=== PATIENT | male | born 1970 | race Caucasian/White ===

== ENCOUNTER → 2018-02-27 11:41 | Outpatient (CLI) | payer OTHER, SELFPAY ==
--- NOTE | 2018-02-27 11:41 | DT_ITS ---
This patient was seen during an EMR downtime February 20, 2018 - February 27, 2018. This patient may have a combination of paper and electronic documentation or all paper documentation. All documentation is viewable within the e-chart portion of [facility] for each patient visit.
[2018-02-27 14:00] LABS: Absolute Lymphocyte Count 0.82 X10^3/ul (0.83-4.51); Absolute Neutrophil Count 3.8 X10^3/uL (2.0-7.7); Basophil# 0.02 X10^3/uL; Basophil% 0.4 % (0-1); Eosinophil# 0.04 X10^3/uL; Eosinophils% 0.7 % (0-5); Hematocrit 44.8 % (40-54); Hemoglobin 15.7 g/dl (13.0-16.5); Lymphocyte # 0.82 X10^3/ul (4.0); Lymphocyte % 15.3 % (19-41); Mean Corpuscular Hgb 31.6 pg (27.0-32.0); Mean Corpuscular Volume 90.1 fL (80-94); Mean Platelet Vol. 12.1 fl (6.2-12.0); Monocyte# 0.68 X10^3/uL; Monocyte% 12.7 % (0-10); Neutrophil # 3.78 X10^3/uL (2.7-7.7); Neutrophil % 70.5 % (47-70); Platelet Count 164 K/mm3 (150-450); RBC Distribution Width CV 13.3 % (11.6-14.6); RBC Distribution Width SD 43.3 fl (35.1-43.9); Red Blood Count 4.97 M/mm3 (4.6-6.2); White Blood Count 5.4 K/mm3 (4.4-11.0)
[2018-02-27 14:01] LABS: ALB/GLOB Ratio 1.3 RATIO (0.9-2.4); AST(SGOT) 20 U/L (15-37); Alanine Aminotransfer ALT/SGPT 40 U/L (16-61); Albumin, Serum 4.1 g/dL (3.2-5.0); Alkaline Phosphatase 89 U/L (45-117); Anion Gap 5 (5-15); BUN 11 mg/dL (7-18); BUN/Creat Ratio 13.3 RATIO (10-20); Chloride 109 mmol/L (98-107); Creatinine, Serum 0.83 mg/dL (0.70-1.30); EST Glomerular Filtration Rate 106 mL/min (>60); Est Glom Filt Rate - Afr Amer 129 mL/min (>60); Globulin 3.2 g/dL (2.2-4.2); Glucose 106 mg/dL (74-106); Potassium 4.4 mmol/L (3.5-5.1); Protein, Total 7.3 g/dL (6.4-8.2); Sodium Level 139 mmol/L (136-145)
[2018-02-27 14:05] LABS: POSITIVE COUNT NO; POSITIVE DIFFERENTIAL NO; POSITIVE MORPHOLOGY NO
== END ==
PROVIDERS: Family Provider Family Medicine; PCP Family Medicine; Visit Provider Family Medicine
DX: R10.9 Unspecified abdominal pain (principal)
CPT/HCPCS: 36415; 80053; 85025

== ENCOUNTER → 2018-02-27 12:12 | Outpatient (CLI) | payer OTHER, SELFPAY ==
--- NOTE | 2018-02-27 12:12 | DT_ITS ---
This patient was seen during an EMR downtime February 20, 2018 - February 27, 2018. This patient may have a combination of paper and electronic documentation or all paper documentation. All documentation is viewable within the e-chart portion of [facility] for each patient visit.
--- NOTE | 2018-02-27 12:16 | CT_ITS ---
STUDY: CT ABDOMEN AND PELVIS WITH CONTRAST REASON FOR EXAM: Male, 47 years old. Right lower quadrant pain, nausea, vomiting. History of kidney stones. RADIATION DOSAGE (If Supplied By Facility): CTDIvol = ( 18.74 ) mGy, DLP = ( 1390.01 ) mGycm TECHNIQUE: Transaxial images were obtained from the dome of the diaphragm to the symphysis pubis with oral contrast. 100CC ml of Isovue 300 contrast was administered. Sagittal and coronal images were reconstructed. Individualized dose optimization techniques were used for this CT. COMPARISON: CT abdomen and pelvis September 29, 2015. FINDINGS: The visualized lung bases are unremarkable. The visualized portions of the heart are within normal limits. 1 cm incompletely defined rounded low-density in the upper aspect of segment 4 of the liver (series 2 image 20, series 6 on image 72) is difficult to further characterize. The patent portal vein diameter is 17.5 mm. Normal gallbladder and extrahepatic biliary system. Normal spleen. Normal pancreas. Normal bilateral adrenal glands. Normal right kidney. 1-2 mm nonobstructing calyceal stone again seen at the lower pole of the left kidney. The left ureteral stent has been removed. No hydronephrosis. Normal visualized stomach. Normal small intestine. Normal colon. The appendix is visualized and appears normal. There is mild atherosclerotic calcification of the lower abdominal aorta, without a demonstrated aneurysm. Normal inferior vena cava. Normal retroperitoneum. Normal urinary bladder. Normal visualized prostate gland. There is a small umbilical hernia containing fat. There is asymmetric fatty density extending from the inguinal canal into the spermatic cord, suggesting a left-sided inguinal hernia. There are stable multilevel degenerative changes of the visualized spine. There is a stable moderately defined 2.2 x 2.2 x 2.4 cm zone of lucency and mildly coarsened trabeculae in the posterior mid body of the T12 vertebra, consistent with hemangioma. There are well corticated invaginations of the T11-L1 vertebral endplates consistent with benign Schmorl's nodes. Mild anterior wedging of the T11 vertebra is unchanged. Degenerative changes also seen in the bilateral sacroiliac joints and left hip. CT/Abdomen/Pelvis WITH Contrast IMPRESSION: 1. Stable 1-2 mm nonobstructing stone in the lower pole of the left kidney. Left ureteral stent has been removed since previous exam. No hydronephrosis. 2. The bowel is unremarkable without sign of obstruction. The appendix is normal. 3. 1 cm rounded low density in the upper aspect of segment 4 of the liver is difficult to fully characterize, possibly a complex cyst or hemangioma. This is a region difficult to scan with ultrasound, and one might consider 3 month follow-up to confirm stability. 4. Stable small, fat-containing umbilical hernia and fat-containing left inguinal hernia. 5. Stable degenerative changes of the spine and pelvis, as well as probable 2.4 cm hemangioma in the T12 vertebra. There is stable anterior wedging of the T11 vertebra. Electronically Signed: Vaughn Quinn MD at 17:12 EDT , Service support ,
== END ==
PROVIDERS: Family Provider Family Medicine; PCP Family Medicine; Visit Provider Family Medicine
DX: R10.9 Unspecified abdominal pain (principal)
CPT/HCPCS: 74177; Q9967

== ENCOUNTER 2021-04-24 23:56 | Emergency (ER) | payer OTHER, SELFPAY ==
[2021-04-24 23:58] VITALS: BP 170/154; PULSE 134; RESP 16; TEMP 36; O2SAT 96; BMI 38.3
--- NOTE | 2021-04-25 00:13 | CT_ITS ---
STUDY: CT ABDOMEN AND PELVIS WITHOUT CONTRAST REASON FOR EXAM: Male, 50 years old. Pain RADIATION DOSAGE (If Supplied By Facility): CTDIvol = ( 21.44 ) mGy, DLP = ( 1248.02 ) mGycm TECHNIQUE: Transaxial images were obtained from the dome of the diaphragm to the symphysis pubis without oral contrast, and without intravenous contrast. Sagittal and coronal images were reconstructed. Individualized dose optimization techniques were used for this CT. COMPARISON: CT abdomen and pelvis dated 02/27/2018 FINDINGS: The visualized lung bases are unremarkable. The visualized portions of the heart are within normal limits. There is decreased attenuation of the liver consistent with steatosis. Normal gallbladder and extrahepatic biliary system. Normal spleen. Normal pancreas. Normal bilateral adrenal glands. Normal right kidney. Normal left kidney. Nonobstructing left lower pole nephrolith measuring 3 mm. Stable from prior. Normal visualized stomach. Normal small intestine. Normal colon. The appendix is visualized and appears normal. Normal abdominal aorta. Normal inferior vena cava. Normal retroperitoneum. Normal urinary bladder. Normal visualized prostate gland. Normal abdominal wall. Normal osseous structures. CT/Abdomen/Pelvis without Cont IMPRESSION: Normal unenhanced CT of the abdomen and pelvis. Electronically Signed: Jimmy Moore DO at 1:47 EDT Tel , Service support ,
--- NOTE | 2021-04-25 00:14 | EDS_ITS ---
HPI History of Present Illness Chief Complaint: Flank Pain Detail of Chief Complaint: Right flank pain that started around 9 PM Informant: patient Narrative Narrative: Patient presents with right flank pain that started around 9 PM tonight. Patient has history of kidney stones. Initially the pain was more severe but now only rates it about a 4 out of 10. Patient states the pain comes in waves. Patient's try to urinate but only getting small amounts of urine at a time. Patient denies any fevers. He did vomit x2 tonight. Patient also admits to 4-5 beers tonight. Prior similar symptoms: [facility] Medical History (Updated 04/25/21 @ 01:[address] Pauline Parra, DO) History of broken nose Kidney stones Home Medications [id number] 2 tab PO Q4H PRN PRN #20 tablet 08/11/16 [Rx Last Taken Unknown] ondansetron 4 mg PO Q8H PRN PRN #10 tab 08/11/16 [Rx Last Taken Unknown] potassium citrate [Urocit-K] 0 meq PO BID 08/11/16 [History Last Taken Unknown] hydrocodone-acetaminophen 1 tab PO Q4H PRN PRN 2 Days #10 tablet 04/25/21 [Rx Last Taken Unknown] Allergy/AdvReac Type Severity Reaction Status Date / Time No Known Allergies Allergy Verified 04/25/21 00:00 Social History Smoking Status: Current every day smoker tobacco type: cigarettes ROS ROS ED Constitutional Constitutional ED: Reports systems reviewed and no addt'l complaints, except as documented; Denies body ache(s), change in weight or chills Eyes Eyes: Denies acute decrease in peripheral vision, change in vision, double vision or loss of vision ENT ENT ED: Reports none; Denies ear pain, lip swelling, loss taste/smell, neck pain, otalgia or sore throat Cardiovascular Cardiovascular: Reports none; Denies abdominal pain, chest pain with activity, leg edema, lightheadedness, palpitations, rapid heart rate or syncope Respiratory/Chest Respiratory/Chest: Reports none; Denies change in mental status, dry cough, dyspnea, hemoptysis, shortness of breath at rest or shortness of breath with exertion Gastrointestinal Gastrointestinal: Reports none, nausea and vomiting; Denies abdominal pain, change in stool character, diarrhea, hematemesis, hematochezia, melena or rectal bleeding Genitourinary Genitourinary ED: Reports none; Denies abdominal discomfort, anuria, dysuria, genital pain or polyuria Musculoskeletal Musculoskeletal: Reports none and back pain; Denies arthralgias, difficulty walking, extremity pain, muscle weakness or myalgias Integumentary Reports none; Denies abscess or rash Neurologic Neurologic: Reports none; Denies abnormal gait, confusion, focal weakness, frequent falls, headache(s), loss of vision, numbness, paresthesias, radicular pain, vertigo or weakness Psychiatric Psychiatric: Reports systems reviewed and no addt'l complaints, except as documented and none; Denies behavioral changes, confusion, difficulty concentrating, hallucinations, suicidal ideation, tactile hallucinations or visual hallucinations Endocrine Endocrinology: Denies none, cold intolerance, excessive sweating, fatigue or heat intolerance Hematologic/Lymphatic Hematologic/Lymphatic: Reports none; Denies anemia, easy bleeding or easy bruising Allergic/Immunologic Allergic/Immunologic ED: Denies as per HPI, none, lip swelling, mouth swelling, throat swelling, tongue swelling or hives EXAM Physical Exam Const Vital Signs: 04/24/21 23:58 04/25/21 01:32 Temperature 96.8 F L Temperature Source Temporal Pulse Rate 134 H Respiratory Rate 16 18 Blood Pressure 170/154 H Blood Pressure Mean 159 Pulse Ox 96 Oxygen Delivery Method Room Air Positive well nourished and well developed General Appearance ED: well developed and NAD HEENT Reports TM's clear and moist mucous membranes normocephalic and atraumatic; Negative for trauma or tenderness Tympanic Membrane ED: Yes TM's clear Eyes PERRL and EOMs intact bilaterally General Eye ED: Negative for pale conjunctiva or scleral icterus Neck no lymphadenopathy, supple and no JVD General: Negative for tenderness Chest Wall inspection of chest normal and palpation of chest normal Chest: Negative for tenderness Resp normal respiratory effort and clear to auscultation bilaterally Effort and Inspection: Negative for respiratory distress or pain with movement Auscultation: Negative for rhonchi, wheezes or diminished lung sounds Cardio regular rate, regular rhythm, S1 normal heart sound, S2 normal heart sound and no murmurs Peripheral Pulses: pulses 2+ throughout GI normal to inspection, nondistended, normoactive bowel sounds, soft to palpation, non-distended and no masses Palpation: soft and tender RLQ Back/Spine no thoracic nor lumbar tenderness General Back: CVA tenderness right Extremity normal to inspection General Extremety ED: Negative for edema General Extremity: Negative for edema Neuro oriented x3, CN's II-XII intact bilaterally, no sensory deficits noted and gait normal Sensorium / Orientation: awake, alert, oriented to person, oriented to place and oriented to time Motor Exam: strength 5/5 throughout and strength abnormal Psych mental status grossly normal Skin no rashes or lesions noted and no wounds MDM MDM MDM Narrative Medical decision making narrative: Etiology of patient's flank pain unclear. He received Toradol in the emergency department and his pain currently is minor and rates it about a 3 out of 10. Patient looks well. He will be discharged home and advised follow-up with his primary care physician 3 to 5 days. He is advised to return if worsening pain, fever, vomiting, or condition should worsen anyway. Lab Data Attestation: I reviewed the patient's lab results. Labs: Laboratory Results - last 24 hr 04/25/21 04/25/21 04/25/21 00:27 00:30 00:30 WBC 7.8 RBC 5.14 Hgb 16.8 H Hct 48.6 MCV 94.6 H MCH 32.7 H MCHC 34.6 RDW Std Deviation 43.8 RDW Coeff of Carmella 12.4 Plt Count 203 MPV 10.8 Immature Gran % (Auto) 0.600 Neut % (Auto) 62.4 Lymph % (Auto) 22.8 [place] % (Auto) 11.9 H Eos % (Auto) 1.8 Baso % (Auto) 0.5 Absolute Neuts (auto) 4.8 Absolute Lymphs (auto) 1.77 Nucleated RBC % 0 Sodium 137 Potassium 4.0 Chloride 104 Carbon Dioxide 24.0 Anion Gap 9 BUN 10 Creatinine 0.72 Estim Creat Clear Calc 144.29 Est GFR (MDRD) Af Amer 149 Est GFR (MDRD) Non-Af 123 BUN/Creatinine Ratio 13.9 Glucose 108 H Calcium 9.2 Total Bilirubin 0.70 AST 42 H ALT 90 H Alkaline Phosphatase 86 Total Protein 7.9 Albumin 4.3 Globulin 3.6 Albumin/Globulin Ratio 1.2 Urine Color Yellow Urine Clarity Clear Urine pH 6.5 Ur Specific [place] 1.010 Urine Protein Negative Urine Glucose (UA) Normal Urine Ketones Negative Urine Occult Blood Negative Urine Nitrite Negative Urine Bilirubin Negative Urine Urobilinogen Normal Ur Leukocyte Esterase Negative Urine RBC 0 SEEN Urine WBC 0 SEEN Ur Squamous Epith Cells 0 SEEN Urine Bacteria 0 SEEN Urine Mucus 0 SEEN Radiography Diagnostic Testing: Radiology Impression Abdomen/Pelvis CT 04/25/21 00:13 IMPRESSION: Normal unenhanced CT of the abdomen and pelvis. Electronically Signed: Jimmy Moore DO at 1:47 EDT Tel , Service support , Discharge Plan Triage Chief Complaint: Flank Pain ED Provider: Pauline Parra Dx/Rx/DC Orders Clinical Impression: Acute flank pain Instructions: ED Flank Pain, Uncertain Cause Prescriptions: New hydrocodone-acetaminophen [hydrocodone-acetaminophen] 1 TABLET tablet 1 tab PO Q4H PRN PRN (Reason: Pain) 2 Days Qty: 10 RF: 0 No Action potassium citrate [Urocit-K 15] 15 MEQ tablet extended release 0 meq PO BID RF: 0 [id number] 1 TABLET tablet 2 tab PO Q4H PRN PRN (Reason: Headache) Qty: 20 RF: 0 ondansetron 4 MG tablet 4 mg PO Q8H PRN PRN (Reason: Nausea) Qty: 10 RF: 0 Primary Care Provider: Arjun Maya Referrals: Arjun Maya MD [Primary Care Provider] - 3-5 Days Disposition Disposition: Home, Self Care
[2021-04-25 00:32] LABS: Bacteria 0 SEEN /hpf (None Seen); Mucous, Urine 0 SEEN /hpf (<or=2+); Red Blood Cells-Urine 0 SEEN /hpf (0-5); Squamous Epithelial Cells - UA 0 SEEN /hpf (0-5); White Blood Cells 0 SEEN /hpf (0-5)
[2021-04-25] MEDS: Ketorolac 30 MG/ML Syringe IV (00:35)
[2021-04-25] MEDS: Ondansetron 4 MG/2 ML Vial IV (00:35)
[2021-04-25] MEDS: 0.9% Normal Saline 1,000 ML 125 ML IV (00:35)
[2021-04-25 00:56] LABS: Absolute Lymphocyte Count 1.77 X10^3/uL (0.83-4.51); Absolute Neutrophil Count 4.8 X10^3/uL (2.0-7.7); Basophil# 0.04 X10^3/uL; Basophil% 0.5 % (0-1); Eosinophil# 0.14 X10^3/uL; Eosinophils% 1.8 % (0-5); Hematocrit 48.6 % (40-54); Hemoglobin 16.8 g/dL (13.0-16.5); Lymphocyte # 1.77 X10^3/ul (0.83-4.51); Lymphocyte % 22.8 % (19-41); Mean Corp Hgb Conc 34.6 g/dL (32-36); Mean Corpuscular Hgb 32.7 pg (27.0-32.0); Mean Corpuscular Volume 94.6 fL (80-94); Mean Platelet Vol. 10.8 fl (6.2-12.0); Monocyte# 0.92 X10^3/uL; Monocyte% 11.9 % (0-10); NRBC Flagged by Analyzer 0 % (0-5); Neutrophil # 4.84 X10^3/uL (2.7-7.7); Neutrophil % 62.4 % (47-70); Platelet Count 203 K/mm3 (150-450); RBC Distribution Width CV 12.4 % (11.6-14.6); RBC Distribution Width SD 43.8 fl (35.1-43.9); Red Blood Count 5.14 M/mm3 (4.6-6.2); White Blood Count 7.8 K/mm3 (4.4-11.0)
[2021-04-25 01:03] LABS: ALB/GLOB Ratio 1.2 RATIO (0.9-2.4); AST(SGOT) 42 U/L (15-37); Alanine Aminotransfer ALT/SGPT 90 U/L (16-61); Albumin, Serum 4.3 g/dL (3.2-5.0); Alkaline Phosphatase 86 U/L (45-117); Anion Gap 9 (5-15); BUN 10 mg/dL (7-18); BUN/Creat Ratio 13.9 RATIO (10-20); Calcium,Total 9.2 mg/dL (8.5-10.1); Chloride 104 mmol/L (98-107); Creatinine, Serum 0.72 mg/dL (0.70-1.30); EST Glomerular Filtration Rate 123 mL/min (>60); Est Glom Filt Rate - Afr Amer 149 mL/min (>60); Estimated Creatinine Clearance 144.29 ml/min; Globulin 3.6 g/dL (2.2-4.2); Glucose 108 mg/dL (74-106); Protein, Total 7.9 g/dL (6.4-8.2); Sodium Level 137 mmol/L (136-145)
[2021-04-25 01:16] LABS: Color, Urine Yellow (Yellow); Glucose, Dipstick Normal (Normal); Ketone-Dipstick Negative (Negative); Leukocyte Esterase-Dipstick Negative /ul (Negative); Nitrite-Dipstick Negative (Negative); Occult Blood-Urine Negative /ul (Negative); Protein-Dipstick Negative (Negative); Urine Bilirubin Dipstick Negative (Negative); Urine Clarity Clear (Clear); Urine Urobilinogen Normal (Normal); Urine pH 6.5 (5.0 - 8.0)
[2021-04-25 01:32] VITALS: RESP 18
[2021-04-25 02:01] VITALS: BP 119/82
== END 2021-04-25 02:03 | disposition home or self-care (01) ==
PROVIDERS: Emergency Provider Emergency Medicine; PCP Family Medicine
DX: R10.9 Unspecified abdominal pain (principal); F17.210 Nicotine dependence, cigarettes, uncomplicated; Z87.442 Personal history of urinary calculi
CPT/HCPCS: 74176; 80053; 81001; 85025; 96374; 96375; 99283; J7030; A4216; J2405

== ENCOUNTER → 2021-06-04 14:45 | Outpatient (CLI) | payer OTHER, SELFPAY | LOC: LABSPEC 14:46 | PROVIDERS: PCP Family Medicine; Referring Provider Family Medicine; Visit Provider Family Medicine | DX: Z20.822 Contact with and (suspected) exposure to COVID-19 (principal) | CPT/HCPCS: 87635; U0005; U0003 ==

== ENCOUNTER 2022-05-25 07:34 | Emergency (ER) | payer OTHER, SELFPAY ==
[2022-05-25 07:35] VITALS: BP 167/109; PULSE 70; RESP 16; TEMP 36.2; O2SAT 96; BMI 39.0
--- NOTE | 2022-05-25 07:52 | ED.VIS.BACK ---
HPI History of Present Illness Chief Complaint: Flank Pain Informant: patient Onset/Context/Timing Onset: Today (1 hr) Context: Sudden Onset (after slipping in shower -- see below) Timing: Continuous (not colicky) Quality: Aching Location: Lumbar, Buttock and Right Leg Current Severity: Moderate Maximum Severity: Severe Worsened by: improves with Movement, Ambulation and Bending Relieved by: Remaining Still Associated Symptoms Associated Symptoms: Radiation to Right Leg; Negative for Numbness, Tingling, Radiation to Left Leg, Fever, Abdominal Pain, Dysuria, Unable to Ambulate, Unable to Transfer, Urinary Retention, Urinary Incontinence, Constipation or Fecal Incontinence Narrative Narrative: Patient states she was taking a shower before work this morning and he slipped, catching himself without falling, and he noticed relatively sudden onset shortly after that pain in his right low back, radiating into his buttock and proximal right thigh but not down to or beyond the knee, it has been there ever since. He has a history of kidney stones, and he states oftentimes when the pain starts from a kidney stone he feels it drop and he had that sensation this morning however subsequently there has been no colicky nature like he usually has, or pain wrapping around his flank to his abdomen like he usually has. No urinary symptoms. He states it really hurts to move, with regards to his back, which is unusual for when he has stones. [facility] Medical History History of broken nose Kidney stones Home Medications [id number]-gbstfaukcqrkz-ccqrczxx 50 mg-325 mg-40 mg tablet 2 tab PO Q4H PRN PRN Headache ##20 08/11/16 [Rx Last Taken Unknown] ondansetron 4 mg disintegrating tablet 4 mg PO Q8H PRN PRN Nausea #10 tabs 08/11/16 [Rx Last Taken Unknown] potassium citrate 15 mEq (1,620 mg) tablet,extended release (Urocit-K 15) 0 meq PO BID 08/11/16 [History Last Taken Unknown] hydrocodone-acetaminophen 5-325mg 5mg-325mg 1 tab PO Q4H PRN PRN Pain 2 days #10 TABLETS 04/25/21 [Rx Last Taken Unknown] orphenadrine citrate 100 mg tablet,extended release 100 mg PO Q12H PRN muscle spasm #10 tabs 05/25/22 [Rx Last Taken Unknown] tramadol 50 mg tablet 50 mg PO Q6H PRN pain 2 days #10 tabs 05/25/22 [Rx Last Taken Unknown] Allergy/AdvReac Type Severity Reaction Status Date / Time No Known Allergies Allergy Verified 05/25/22 07:38 Social History Smoking Status: Current every day smoker tobacco type: cigarettes ROS ROS ED Constitutional Constitutional ED: Denies chills or fever(s) Gastrointestinal Gastrointestinal: Denies abdominal pain, constipation, fecal incontinence, nausea or vomiting Genitourinary Genitourinary ED: Reports other Details: no urinary retention ; Denies abdominal discomfort, flank pain or urinary incontinence Musculoskeletal Musculoskeletal: Reports as per HPI and back pain; Denies neck pain Integumentary Denies rash or wounds Neurologic Neurologic: Denies headache(s), paresthesias or weakness EXAM Physical Exam Const Vital Signs: 05/25/22 07:35 05/25/22 07:53 Temperature 97.2 F L Temperature Source Temporal Pulse Rate 70 Respiratory Rate 16 Respiratory Effort Normal Non-Labored Respiratory Pattern Normal Blood Pressure 167/109 H Blood Pressure Mean 128 Pulse Ox 96 Oxygen Delivery Method Room Air Positive well nourished, well developed and obese General Appearance ED: well developed and NAD Nutritional Appearance: obese HEENT Negative for trauma or tenderness Eyes PERRL and EOMs intact bilaterally Neck full ROM and supple GI normal to inspection, nondistended, normoactive bowel sounds, soft to palpation and non-tender Back/Spine normal to inspection Back/Spine Narrative: Straight leg raises while sitting are negative bilaterally, only increasing back pain Lumbar Spine / Lower Back: ROM limited, paraspinal muscle tenderness right (Near pelvic brim and into buttock/SI joint. No deformities or bony tenderness.) and straight leg raise negative bilaterally; Negative for lumbar spinal tenderness Extremity normal to inspection, full ROM and no pedal edema Neuro oriented x3 and no sensory deficits noted Sensorium / Orientation: alert Motor Exam: strength 5/5 throughout and clonus absent Deep Tendon Reflexes: Rt Patellar (L4): 2+, Lt Patellar (L4): 2+, Rt Ankle (S1): 2+ and Lt Ankle (S1): 2+ Deep Tendon Reflexes Back: Rt Patellar (L4): 2+, Lt Patellar (L4): 2+, Rt Ankle (S1): 2+ and Lt Ankle (S1): 2+ Plantar Reflex: Downgoing: bilateral Psych mental status grossly normal and thought process normal Skin no rashes or lesions noted and no wounds MDM MDM MDM Narrative Medical decision making narrative: ForWe did a urinalysis that was normal with no microscopic hematuria, and the patient was given an injection of Norflex, he took meloxicam 15 mg prior to coming here. On reexamination he is feeling much better. It is worse with movement still but definitely improved. I think this is all consistent with a lumbosacral myofascial strain, and I do not think he needs repeat imaging, he is in agreement. He will be given a day off of work, Norflex as well as some tramadol to use as needed at home, discussed supportive care for this likely self-limiting problem. Lab Data Attestation: I reviewed the patient's lab results. Labs: Laboratory Results - last 24 hr 05/25/22 07:55 Urine Color Yellow Urine Clarity Clear Urine pH 6.0 Ur Specific [place] 1.015 Urine Protein Negative Urine Glucose (UA) Normal Urine Ketones Negative Urine Occult Blood Negative Urine Nitrite Negative Urine Bilirubin Negative Urine Urobilinogen Normal Ur Leukocyte Esterase Negative Urine RBC 0 SEEN Urine WBC 0 SEEN Ur Squamous Epith Cells 0 SEEN Urine Bacteria 0 SEEN Urine Mucus 0 SEEN Discharge Plan Triage Chief Complaint: Flank Pain ED Provider: Td Pressley Dx/Rx/DC Orders Clinical Impression: Acute lumbosacral myofascial strain Instructions: ED Back Sprain/Strain Prescriptions: New tramadol 50 mg tablet 50 mg PO Q6H PRN (Reason: pain) 2 Days Qty: 10 0RF orphenadrine citrate 100 mg tablet extended release 100 mg PO Q12H PRN (Reason: muscle spasm) Qty: 10 0RF No Action potassium citrate [Urocit-K 15] 15 MEQ tablet extended release 0 meq PO BID [id number]-[id number] 1 TABLET tablet 2 tab PO Q4H PRN PRN (Reason: Headache) Qty: 20 0RF ondansetron 4 MG tablet 4 mg PO Q8H PRN PRN (Reason: Nausea) Qty: 10 0RF hydrocodone-acetaminophen [hydrocodone-acetaminophen] 1 TABLET tablet 1 tab PO Q4H PRN PRN (Reason: Pain) 2 Days Qty: 10 0RF Stand Alone Forms: ED Work / School Excuse Primary Care Provider: Arjun Maya Referrals: Arjun Maya MD [Primary Care Provider] - 1 Week if not improving Disposition Disposition: Home, Self Care
[2022-05-25] MEDS: Orphenadrine 60 MG/2 ML Ampul IM (08:00)
[2022-05-25 08:02] LABS: Bacteria 0 SEEN /hpf (None Seen); Mucous, Urine 0 SEEN /hpf (<or=2+); Red Blood Cells-Urine 0 SEEN /hpf (0-5); Squamous Epithelial Cells - UA 0 SEEN /hpf (0-5); White Blood Cells 0 SEEN /hpf (0-5)
[2022-05-25 08:03] LABS: Color, Urine Yellow (Yellow); Glucose, Dipstick Normal (Normal); Ketone-Dipstick Negative (Negative); Leukocyte Esterase-Dipstick Negative /ul (Negative); Nitrite-Dipstick Negative (Negative); Occult Blood-Urine Negative /ul (Negative); Protein-Dipstick Negative (Negative); Specific Gravity, Urine 1.015 (1.002-1.030); Urine Bilirubin Dipstick Negative (Negative); Urine Clarity Clear (Clear); Urine Urobilinogen Normal (Normal)
== END 2022-05-25 10:28 | disposition home or self-care (01) ==
PROVIDERS: Emergency Provider Emergency Medicine; PCP Family Medicine; Visit Provider Emergency Medicine
DX: S39.012A Strain of muscle, fascia and tendon of lower back, initial encounter (principal); F17.210 Nicotine dependence, cigarettes, uncomplicated; E66.9 Obesity, unspecified; W18.2XXA Fall in (into) shower or empty bathtub, initial encounter
CPT/HCPCS: 81001; 96372; 99283

== ENCOUNTER → 2022-11-15 | Outpatient (CLI) | payer OTHER, SELFPAY ==
--- NOTE | 2022-11-15 08:10 | ECHOD_ITS ---
Reason For Study: CSA Procedure This was a 2D Doppler, Color Flow transthoracic echocardiogram. Exam performed in department. Left Ventricle Normal LV size. Left ventricular systolic function is normal. The estimated ejection fraction is 55 %. Normal diastology for age. No regional wall motion abnormalities noted. Right Ventricle Normal RV size. Normal systolic function. Atria The left atrium is mildly enlarged. The right atrium is mildly enlarged. Mitral Valve Normal mitral valve. Tricuspid Valve Normal tricuspid valve. Aortic Valve Trisinus/trileaflet aortic valve. Pulmonic Valve Normal pulmonic valve. Great Vessels Normal aortic root. The pulmonary artery is normal size. Normal inferior vena cava. Pericardium/Pleural No pericardial effusion. MMode/2D Measurements & Calculations LVIDd: 5.4 cm IVSd: 1.3 cm Ao root diam: 3.9 cm LVIDs: 3.9 cm LVPWd: 1.8 cm FS: 27.2 % LAV(MOD-sp4): 72.9 ml LVAd ap4: 40.6 cm2 SV(MOD-sp4): 88.6 ml LVLd ap4: 9.6 cm EDV(MOD-sp4): 146.6 ml EDV(sp4-el): 145.7 ml LVAs ap4: 23.0 cm2 LVLs ap4: 8.0 cm ESV(MOD-sp4): 58.0 ml ESV(sp4-el): 56.0 ml EF(MOD-sp4): 60.5 % EF(sp4-el): 61.5 % SV(sp4-el): 89.7 ml LA A4 area: 23.1 cm2 LA dimension(2D): 5.1 cm RA A4 area: 25.5 cm2 Time Measurements MV dec time: 0.15 sec Doppler Measurements & Calculations MV E max stan: 68.6 cm/sec Lat Peak E' Stan: 8.1 cm/sec Med Peak E' Stan: 8.5 cm/sec MV A max stan: 34.8 cm/sec E/E' lat: 8.5 E/E' med: 8.0 MV E/A: 2.0 MV V2 max: 84.5 cm/sec Ao V2 max: 87.8 cm/sec MV max P.9 mmHg MV dec slope: 446.1 cm/sec2 Ao max P.1 mmHg MV V2 mean: 31.0 cm/sec Ao V2 mean: 62.2 cm/sec MV mean P.63 mmHg Ao mean P.7 mmHg MV V2 VTI: 25.8 cm Ao V2 VTI: 22.8 cm AV (velocity ratio): 0.85 LV V1 max: 79.9 cm/sec PA V2 max: 90.6 cm/sec LV V1 max P.6 mmHg PA V2 mean: 58.2 cm/sec LV V1 mean P.2 mmHg LV V1 mean: 50.5 cm/sec LV V1 VTI: 19.5 cm ECHO/Echo Complete Interpretation Summary Normal LV size. Left ventricular systolic function is normal. The estimated ejection fraction is 55 %. Normal diastology for age. The left atrium is mildly enlarged. The right atrium is mildly enlarged. Ordering Physician: Vick Francis V Referring Physician: Vick Francis V Performed By: Sharon Mercer RCS
== END | disposition home or self-care (01) ==
LOC: CVS 08:08
PROVIDERS: PCP Family Medicine; Referring Provider Internal Medicine Pulmonary Disease; Visit Provider Internal Medicine Pulmonary Disease
DX: G47.33 Obstructive sleep apnea (adult) (pediatric) (principal)
CPT/HCPCS: 93306

== ENCOUNTER → 2023-05-09 | Outpatient (CLI) | payer OTHER, SELFPAY ==
[2023-05-09 13:39] LABS: ALB/GLOB Ratio 1.1 RATIO (0.9-2.4); AST(SGOT) 17 U/L (15-37); Alanine Aminotransfer ALT/SGPT 40 U/L (16-61); Albumin, Serum 3.6 g/dL (3.2-5.0); Alkaline Phosphatase 88 U/L (45-117); Anion Gap 6 (5-15); BUN 13 mg/dL (7-18); BUN/Creat Ratio 17.3 RATIO (10-20); Calcium,Total 8.5 mg/dL (8.5-10.1); Chloride 110 mmol/L (98-107); Cholesterol 175 mg/dL (200); Creatinine, Serum 0.75 mg/dL (0.70-1.30); EST Glomerular Filtration Rate 116 mL/min (>60); Est Glom Filt Rate - Afr Amer 140 mL/min (>60); Globulin 3.2 g/dL (2.2-4.2); Glucose 96 mg/dL (74-106); High Density Lipoprotein 31 mg/dL; Potassium 4.1 mmol/L (3.5-5.1); Protein, Total 6.8 g/dL (6.4-8.2); Sodium Level 138 mmol/L (136-145); Triglycerides 179 mg/dL; Very Low Density Lipoprotein 36 mg/dL (5-40)
== END | disposition home or self-care (01) ==
LOC: MFPLAB 10:19
PROVIDERS: PCP Family Medicine; Visit Provider Family Medicine
DX: I10 Essential (primary) hypertension (principal)
CPT/HCPCS: 36415; 80053; 80061

== ENCOUNTER 2024-04-10 08:11 | Emergency (ER) | payer OTHER, SELFPAY ==
[2024-04-10 08:12] VITALS: BP 124/96; PULSE 90; RESP 16; TEMP 36.9; O2SAT 94; BMI 32.8
--- NOTE | 2024-04-10 08:51 | EDS_ITS ---
HPI HPI - GI History of Present Illness Chief Complaint: Nausea/Vomiting/Diarrhea Informant: patient and spouse/S.O. Abdominal Pain/Flank Pain Onset: Days Context: Gradual Onset Timing: Intermittent Quality: Cramping Location: Diffuse Current Severity: Mild Maximum Severity: Mild Worsened by: Nothing Relieved by: Nothing Nausea/Vomiting/Emesis GI Symptom: Positive for Nausea and Vomiting Onset: Days Quality: Positive for Nonbilious Severity: Mild Diarrhea/Melena/Hematochezia GI Symptom: Positive for Diarrhea; Negative for Melena or Hematochezia Onset: Days Stool Quality: Positive for Loose and Watery Severity: Moderate Associated Symptoms Associated Symptoms: Negative for Dysuria, Frequency, Hematuria or Urgency Narrative Narrative: 54-year-old male history of prior kidney stones. Says for over a week since Tuesday a week ago he has had intermittent nausea vomiting diarrhea. Said started out last Tuesday lasted several days he thought was a viral syndrome. He was feeling better. Then again Tuesday evening 3 days ago he started having similar symptoms. Denies any abdominal pain other than crampy pain since the vomiting and diarrhea. No fever. Feels dehydrated. Denies any dysuria. No recent hospitalization. No recent travel or antibiotic use. He is on weight loss shots he took the last 1 about a week ago. He has been on those about a year and has not had any problems. Prior similar symptoms: No Recent Illness/Hospitalization: No [facility] Medical History History of broken nose Kidney stones Home Medications ?Medication ?Instructions ?Recorded ?Last Taken ?Type psbrojjqkw-[id number] 2 tab PO Q4H PRN PRN Headache ##20 08/11/16 U nknown Rx 50 mg-325 mg-40 mg tablet ondansetron 4 mg disintegrating 4 mg PO Q8H PRN PRN Nausea #10 tabs 08/11/16 Unknown Rx tablet potassium citrate 15 mEq (1,620 0 meq PO BID 08/11/16 Unknown History mg) tablet,extended release (Urocit-K 15) hydrocodone-acetaminophen 5-325mg 1 tab PO Q4H PRN PRN Pain 2 days 04/25/21 Unknown Rx 5mg-325mg #10 TABLETS orphenadrine citrate 100 mg 100 mg PO Q12H PRN muscle spasm 05/25/22 Unknown Rx tablet,extended release #10 tabs tramadol 50 mg tablet 50 mg PO Q6H PRN pain 2 days #10 05/25/22 Unknown Rx tabs ondansetron 8 mg disintegrating 8 mg PO Q8H PRN nausea and 04/10/24 Unknown Rx tablet vomiting #7 tabs Allergy/AdvReac Type Severity Reaction Status Date / Time No Known Allergies Allergy Verified 04/10/24 08:15 Social History Smoking Status: Current every day smoker tobacco type: cigarettes ROS ROS ED ROS Narrative Nausea, vomiting and diarrhea. Review of Systems ROS Unobtainable: Denies due to encephalopathy Constitutional Constitutional ED: Denies chills or fever(s) ENT ENT ED: Denies ear pain Cardiovascular Cardiovascular: Denies chest pain Respiratory/Chest Respiratory/Chest: Denies cough or dyspnea Gastrointestinal Gastrointestinal: Reports diarrhea, nausea and vomiting; Denies abdominal pain, constipation or melena Genitourinary Genitourinary ED: Denies dysuria or hematuria Musculoskeletal Musculoskeletal: Denies arthralgias Integumentary Denies abscess Neurologic Neurologic: Denies headache(s) Psychiatric Psychiatric: Denies anxiety Endocrine Endocrinology: Denies polydipsia Hematologic/Lymphatic Hematologic/Lymphatic: Denies easy bleeding Allergic/Immunologic Allergic/Immunologic ED: Denies mouth swelling EXAM Physical Exam Narrative Exam Narrative: Well-appearing 53-year-old male. Vital signs stable afebrile. H EENT exam pupils round reactive light. Dry mucous membranes. Neck nontender no JVD. Lungs clear to auscultation bilaterally. Heart regular rhythm rate about 90 no murmur. Abdomen is soft nondistended normal bowel sounds without any peritoneal signs. No localizing tenderness. No hernia or mass. No distention. Moving all 4 extremities. Normal strength. No edema. Back nontender. Neurologically is awake and alert no focal motor deficits. at bedside. Const Vital Signs: 04/10/24 08:12 04/10/24 10:23 Temperature 98.4 F 98.0 F Temperature Source Temporal Temporal Pulse Rate 90 71 Respiratory Rate 16 13 Blood Pressure 124/96 H 118/75 Blood Pressure Mean 105 89 Pulse Ox 94 93 Oxygen Delivery Method Room Air Room Air Positive well nourished and well developed; Negative for cachectic, contractures or unkempt General Appearance ED: well developed and NAD; Negative for unkempt, cachectic, contractures or pallor Nutritional Appearance: Negative for cachectic HEENT Reports dry mucous membranes; Denies moist mucous membranes normocephalic and atraumatic; Negative for trauma or tenderness Mouth ED: Yes dry mucous membranes Mouth: dry mucous membranes Eyes PERRL and EOMs intact bilaterally General Eye ED: Negative for pale conjunctiva or scleral icterus Neck no lymphadenopathy, supple and no JVD General: Negative for tenderness Carotids: Negative for other Lymph Lymphatic: Negative for other Resp normal respiratory effort and clear to auscultation bilaterally Effort and Inspection: Negative for respiratory distress Auscultation: Negative for rales, rhonchi or wheezes Cardio regular rate, regular rhythm, S1 normal heart sound, S2 normal heart sound and no murmurs GI non-distended and no masses; Negative for non-tender GI Narrative: Mild diffuse tenderness not localizing. Right upper right lower quadrant is unremarkable. No distention. No hernia or mass. Inspection: Negative for abdominal distention Auscultation: normoactive bowel sounds Palpation: soft; Negative for tender, guarding or rebound tenderness present Back/Spine no CVA tenderness General Back: Negative for CVA tenderness Cervical Spine: Negative for cervical spine tenderness Thoracic Spine / Upper Back: Negative for thoracic spinal tenderness Lumbar Spine / Lower Back: Negative for lumbar spinal tenderness Coccyx: Negative for other Extremity full ROM General Extremety ED: Negative for edema, tenderness or other findings General Extremity: Negative for edema or other findings Neuro CN's II-XII intact bilaterally and moves all extremities Sensorium / Orientation: alert, oriented to person and oriented to place; Negative for oriented to time, orientation impaired, confused, lethargic or stuporous Motor Exam: strength 5/5 throughout Psych mental status grossly normal and thought process normal Appearance: Negative for unkempt Attitude: No agitated Mood & Affect: Negative for depressed, anxious or tearful Skin no wounds General Skin Exam: Negative for jaundice or pallor Lesions: no lesions Rashes: no rashes Trauma: Negative for abrasion Nails: Negative for discolored MDM MDM MDM Narrative Medical decision making narrative: 53-year-old male with nausea vomiting diarrhea. May have started as a viral syndrome. Clinically looks dehydrated. Be treated with IV fluids. Zofran for nausea. Screening labs. At this time I do not think he needs a CAT scan. There is no signs this being appendicitis or gallbladder. Repeat exam patient doing well at 10:30 AM. Abdomen benign. I do not have a specific cause for his symptoms. May be viral but seems to be a little longer lasting than a typical viral syndrome. Fluids and rest. Follow-up as needed. Zofran as needed for nausea. Lab Data Attestation: I reviewed the patient's lab results. Lab results narrative: Seizures awake and 12. H&H 14.9 and 43. Electrolytes show Gap of 5. Normal BUN 16 creatinine 0.7. Glucose 104. Liver enzymes normal. Lipase 30 symptoms. Labs: Laboratory Results - last 24 hr 04/10/24 04/10/24 04/10/24 09:07 09:07 09:36 WBC Cancelled 12.0 H Corrected WBC Cancelled RBC Cancelled 4.66 Hgb Cancelled 14.9 Hct Cancelled 43.6 MCV Cancelled 93.6 MCH Cancelled 32.0 MCHC Cancelled 34.2 RDW Std Deviation Cancelled 44.2 H RDW Coeff of Carmella Cancelled 12.9 Plt Count Cancelled TNP MPV Cancelled 11.3 Immature Gran % (Auto) Cancelled 0.400 Neut % (Auto) Cancelled 77.4 H Lymph % (Auto) Cancelled 9.6 L Edwards % (Auto) Cancelled 11.4 H Eos % (Auto) Cancelled 1.0 Baso % (Auto) Cancelled 0.2 Absolute Neuts (auto) Cancelled 9.3 H Absolute Lymphs (auto) Cancelled 1.16 Total Counted Cancelled Neutrophils % (Manual) Cancelled Band Neutrophils % Cancelled Lymphocytes % (Manual) Cancelled Monocytes % (Manual) Cancelled Eosinophils % (Manual) Cancelled Basophils % (Manual) Cancelled Metamyelocytes % Cancelled Myelocytes % Cancelled Promyelocytes % Cancelled Blast Cells % Cancelled Plasma Cell % (Manual) Cancelled Other Cells % Cancelled Nucleated RBC % Cancelled 0 Nucleated RBCs/100 WBC Cancelled Differential Comment Cancelled SCANNED Diff Path Review Cancelled Hypersegmented Neuts Cancelled Atypical Lymphocytes Cancelled Reactive Lymphocytes Cancelled Smudge Cells Cancelled Toxic Granulation Cancelled Toxic Vacuolation Cancelled Dohle Bodies Cancelled Annia Rods Cancelled Platelet Estimate Cancelled ADEQUATE Plt Morphology Comment Cancelled RBC Morphology Cancelled Cancelled Polychromasia Cancelled Hypochromasia Cancelled Basophilic Stippling Cancelled Anisocytosis Cancelled Microcytosis Cancelled Macrocytosis Cancelled Spherocytes Cancelled Sickle Cells Cancelled Target Cells Cancelled Tear Drop Cells Cancelled Ovalocytes Cancelled Stomatocytes Cancelled Feliciano-Irena Bodies Cancelled Hai Cells Cancelled Bite Cells Cancelled Crenated Cell Cancelled Acanthocytes (Spur) Cancelled Rouleaux Cancelled Schistocytes Cancelled Sodium 138 Potassium 4.6 Chloride 109 H Carbon Dioxide 24.0 Anion Gap 5 BUN 16 Creatinine 0.76 Estim Creat Clear Calc 158.28 Est GFR (MDRD) Af Amer 137 Est GFR (MDRD) Non-Af 113 BUN/Creatinine Ratio 20.9 H Glucose 104 Calcium 8.9 Total Bilirubin 1.10 H AST 27 ALT 33 Alkaline Phosphatase 73 Total Protein 6.5 Albumin 3.2 Globulin 3.3 Albumin/Globulin Ratio 1.0 Lipase 37 Discharge Plan Triage Chief Complaint: Nausea/Vomiting/Diarrhea ED Provider: Isaias Lyons Dx/Rx/DC Orders Clinical Impression: Nausea vomiting and diarrhea, History of renal stone Instructions: ED Vomit Diarrhea Nonspec Adult Prescriptions: New ondansetron 8 mg tablet,disintegrating 8 mg PO Q8H PRN (Reason: nausea and vomiting) Qty: 7 0RF No Action potassium citrate [Urocit-K 15] 15 MEQ tablet extended release 0 meq PO BID [id number] 1 TABLET tablet 2 tab PO Q4H PRN PRN (Reason: Headache) Qty: 20 0RF ondansetron 4 MG tablet 4 mg PO Q8H PRN PRN (Reason: Nausea) Qty: 10 0RF hydrocodone-acetaminophen [hydrocodone-acetaminophen] 1 TABLET tablet 1 tab PO Q4H PRN PRN (Reason: Pain) 2 Days Qty: 10 0RF tramadol 50 mg tablet 50 mg PO Q6H PRN (Reason: pain) 2 Days Qty: 10 0RF orphenadrine citrate 100 mg tablet extended release 100 mg PO Q12H PRN (Reason: muscle spasm) Qty: 10 0RF Primary Care Provider: Arjun Maya Referrals: Arjun Maya MD [Primary Care Provider] - 3-5 Days if not improving Activity Restrictions/Additional Instructions: Plenty fluids and rest. Increase diet slowly as tolerated. Zofran as needed for nausea. Imodium for diarrhea. Follow-up with your primary care physician if not improving in the next several days. Print Language: Kyrgyz Disposition Disposition: Home, Self Care
[2024-04-10] MEDS: 0.9% Normal Saline (1000mL) 1,000 ML 999 ML IV (09:09)
[2024-04-10] MEDS: Ondansetron 4 MG/2 ML Vial IV (09:09)
[2024-04-10 09:42] LABS: Absolute Lymphocyte Count 1.16 X10^3/uL (0.83-4.51); Absolute Neutrophil Count 9.3 X10^3/uL (2.0-7.7); Basophil# 0.03 X10^3/uL; Basophil% 0.2 % (0-1); Eosinophil# 0.12 X10^3/uL; Hematocrit 43.6 % (40-54); Hemoglobin 14.9 g/dL (13.0-16.5); Lymphocyte # 1.16 X10^3/ul (0.83-4.51); Lymphocyte % 9.6 % (19-41); Mean Corp Hgb Conc 34.2 g/dL (32-36); Mean Corpuscular Volume 93.6 fL (80-94); Mean Platelet Vol. 11.3 fl (6.2-12.0); Monocyte# 1.37 X10^3/uL; Monocyte% 11.4 % (0-10); NRBC Flagged by Analyzer 0 % (0-5); Neutrophil # 9.31 X10^3/uL (2.7-7.7); Neutrophil % 77.4 % (47-70); POSITIVE COUNT YES; RBC Distribution Width CV 12.9 % (11.6-14.6); RBC Distribution Width SD 44.2 fl (35.1-43.9); Red Blood Count 4.66 M/mm3 (4.6-6.2)
[2024-04-10 09:55] LABS: AST(SGOT) 27 U/L (15-37); Alanine Aminotransfer ALT/SGPT 33 U/L (16-61); Albumin, Serum 3.2 g/dL (3.2-5.0); Alkaline Phosphatase 73 U/L (45-117); Anion Gap 5 (5-15); BUN 16 mg/dL (7-18); BUN/Creat Ratio 20.9 RATIO (10-20); Calcium,Total 8.9 mg/dL (8.5-10.1); Chloride 109 mmol/L (98-107); Creatinine, Serum 0.76 mg/dL (0.70-1.30); EST Glomerular Filtration Rate 113 mL/min (>60); Est Glom Filt Rate - Afr Amer 137 mL/min (>60); Estimated Creatinine Clearance 158.28 ml/min; Globulin 3.3 g/dL (2.2-4.2); Glucose 104 mg/dL (74-106); Lipase 37 U/L (13-75); Potassium 4.6 mmol/L (3.5-5.1); Protein, Total 6.5 g/dL (6.4-8.2); Sodium Level 138 mmol/L (136-145)
[2024-04-10 10:08] LABS: Differential Indicated SCAN CRITERIA MET
[2024-04-10 10:09] LABS: Differential Comment SCANNED; Platelet Estimate ADEQUATE (ADEQ)
[2024-04-10 10:23] VITALS: BP 118/75; PULSE 71; RESP 13; TEMP 36.7; O2SAT 93
[2024-04-10 10:36] VITALS: BP 124/90; PULSE 59; RESP 12; O2SAT 95
--- NOTE | 2024-04-10 11:15 | ED.RN ---
delay in d/c d/t printers not working for d/c papers.
== END 2024-04-10 12:04 | disposition home or self-care (01) ==
PROVIDERS: Emergency Provider Emergency Medicine; PCP Family Medicine; Visit Provider Emergency Medicine
DX: R11.2 Nausea with vomiting, unspecified (principal); R19.7 Diarrhea, unspecified; F17.210 Nicotine dependence, cigarettes, uncomplicated
CPT/HCPCS: 80053; 83690; 85025; 96374; 99283; J7030; A4216; J2405

== ENCOUNTER → 2024-10-15 | Outpatient (CLI) | payer OTHER, SELFPAY ==
[2024-10-15 10:38] LABS: Absolute Lymphocyte Count 1.54 X10^3/uL (0.83-4.51); Basophil# 0.03 X10^3/uL; Basophil% 0.4 % (0-1); Eosinophil# 0.09 X10^3/uL; Eosinophils% 1.2 % (0-5); Hematocrit 45.1 % (40-54); Hemoglobin 15.3 g/dL (13.0-16.5); Lymphocyte # 1.54 X10^3/ul (0.83-4.51); Lymphocyte % 20.4 % (19-41); Mean Corp Hgb Conc 33.9 g/dL (32-36); Mean Corpuscular Hgb 31.7 pg (27.0-32.0); Mean Corpuscular Volume 93.6 fL (80-94); Mean Platelet Vol. 11.5 fl (6.2-12.0); Monocyte# 0.85 X10^3/uL; Monocyte% 11.3 % (0-10); NRBC Flagged by Analyzer 0 % (0-5); Neutrophil # 5.01 X10^3/uL (2.7-7.7); Neutrophil % 66.4 % (47-70); Platelet Count 180 K/mm3 (150-450); RBC Distribution Width CV 13.1 % (11.6-14.6); Red Blood Count 4.82 M/mm3 (4.6-6.2); White Blood Count 7.5 K/mm3 (4.4-11.0)
[2024-10-15 11:22] LABS: Anion Gap 5 (5-15); BUN 18 mg/dL (7-18); BUN/Creat Ratio 25.9 RATIO (10-20); Calcium,Total 9.5 mg/dL (8.5-10.1); Chloride 107 mmol/L (98-107); EST Glomerular Filtration Rate 126 mL/min (>60); Est Glom Filt Rate - Afr Amer 153 mL/min (>60); Glucose 117 mg/dL (74-106); Potassium 4.4 mmol/L (3.5-5.1); Sodium Level 138 mmol/L (136-145); Thyroid Stim Hormone (TSH) 0.988 uIU/mL (0.358-3.740)
== END | disposition home or self-care (01) ==
LOC: MFPLAB 08:51
PROVIDERS: PCP Family Medicine; Referring Provider Family Medicine; Visit Provider Family Medicine
DX: R53.83 Other fatigue (principal); F39 Unspecified mood [affective] disorder
CPT/HCPCS: 36415; 80048; 84443; 85025

== ENCOUNTER 2024-11-07 09:53 | Emergency (ER) | payer OTHER, SELFPAY ==
[2024-11-07] VITALS (7 sets, daily range): BP systolic 104–121; BP diastolic 58–74; PULSE 65–79; RESP 15–20; TEMP 36.7–36.9; O2SAT 96–99; BMI 35.4
[2024-11-07 10:53] LABS: Absolute Lymphocyte Count 0.49 X10^3/uL (0.83-4.51); Absolute Neutrophil Count 6.7 X10^3/uL (2.0-7.7); Basophil# 0.02 X10^3/uL; Basophil% 0.3 % (0-1); Eosinophil# 0.05 X10^3/uL; Eosinophils% 0.6 % (0-5); Hematocrit 46.9 % (40-54); Hemoglobin 15.5 g/dL (13.0-16.5); Lymphocyte # 0.49 X10^3/ul (0.83-4.51); Lymphocyte % 6.2 % (19-41); Mean Corpuscular Hgb 31.3 pg (27.0-32.0); Mean Corpuscular Volume 94.6 fL (80-94); Mean Platelet Vol. 11.8 fl (6.2-12.0); Monocyte# 0.58 X10^3/uL; Monocyte% 7.3 % (0-10); NRBC Flagged by Analyzer 0 % (0-5); Neutrophil # 6.72 X10^3/uL (2.7-7.7); Neutrophil % 85.1 % (47-70); POSITIVE DIFFERENTIAL YES; Platelet Count 161 K/mm3 (150-450); Red Blood Count 4.96 M/mm3 (4.6-6.2); White Blood Count 7.9 K/mm3 (4.4-11.0)
--- NOTE | 2024-11-07 10:55 | ED.VIS.CHEST ---
HPI History of Present Illness Chief Complaint: Chest Other Informant: patient Narrative Narrative: Patient is a 54-year-old male presenting from urgent care for chest pain. Patient had an episode of significant sneezing on Tuesday, 10 days ago and had severe rib pain. He thought he may be cracked rib. 1 week ago he had another episode of sneezing or sneeze for 10-12 times. He tried a splint at that time but had pain. Last night he had another sneezing fit where he was coughing and sneezing for 10-15 times. He had significantly increased pain especially over his left anterior chest wall. He went to urgent care today because he is also having episodes of chest pressure. They did rib x-rays noose told they were negative. He also had a influenza A and B rapid test which was negative. He was sent to the ER for further evaluation. Notes this morning feels that he is coughing up phlegm. Was given x-ray he felt feverish and has been feeling cold and sweaty. He notes he is feeling foggy this morning but started to feel little bit better from that standpoint. Denies use one of his legs. Has a history of DVT or PE. [facility] Medical History History of broken nose Kidney stones Home Medications ?Medication ?Instructions ?Recorded ?Last Taken ?Type iitqahctci-inrbeiwgsyjnc-iswurljf 2 tab PO Q4H PRN PRN Headache ##20 08/11/16 Unknown Rx 50 mg-325 mg-40 mg tablet ondansetron 4 mg disintegrating 4 mg PO Q8H PRN PRN Nausea #10 tabs 08/11/16 Unknown Rx tablet potassium citrate 15 mEq (1,620 0 meq PO BID 08/11/16 Unknown History mg) tablet,extended release (Urocit-K 15) hydrocodone-acetaminophen 5-325mg 1 tab PO Q4H PRN PRN Pain 2 days 04/25/21 Unknown Rx 5mg-325mg #10 TABLETS orphenadrine citrate 100 mg 100 mg PO Q12H PRN muscle spasm 05/25/22 Unknown Rx tablet,extended release #10 tabs tramadol 50 mg tablet 50 mg PO Q6H PRN pain 2 days #10 05/25/22 Unknown Rx tabs ondansetron 8 mg disintegrating 8 mg PO Q8H PRN nausea and 04/10/24 Unknown Rx tablet vomiting #7 tabs Allergy/AdvReac Type Severity Reaction Status Date / Time No Known Allergies Allergy Verified 11/07/24 10:06 Social History Smoking Status: Current every day smoker tobacco type: cigarettes ROS ROS ED Constitutional Constitutional ED: Reports chills, fever(s) and sweats Eyes Eyes: Reports other; Denies change in vision ENT ENT ED: Reports rhinorrhea and other Details: congestion ; Denies sore throat Cardiovascular Cardiovascular: Reports as per HPI and chest pain; Denies palpitations Respiratory/Chest Respiratory/Chest: Reports cough; Denies dyspnea Gastrointestinal Gastrointestinal: Denies abdominal pain, nausea or vomiting Musculoskeletal Musculoskeletal: Reports arthralgias, back pain and myalgias Integumentary Denies rash Neurologic Neurologic: Reports weakness; Denies paresthesias Psychiatric Psychiatric: Reports anxiety Hematologic/Lymphatic Hematologic/Lymphatic: Denies easy bleeding or easy bruising EXAM Physical Exam Const Vital Signs: 11/07/24 09:54 11/07/24 10:06 11/07/24 11:00 Temperature 98.1 F 98.1 F 98.1 F Temperature Source Temporal Temporal Oral Pulse Rate 79 79 78 Respiratory Rate 15 15 16 Blood Pressure 119/67 119/67 121/74 H Blood Pressure Mean 84 84 89 Pulse Ox 98 98 98 Oxygen Delivery Method Room Air Room Air Room Air 11/07/24 12:00 11/07/24 13:00 Temperature 98.4 F 98.4 F Temperature Source Oral Oral Pulse Rate 71 65 Respiratory Rate 16 19 H Blood Pressure 110/65 104/58 L Blood Pressure Mean 80 73 Pulse Ox 96 98 Oxygen Delivery Method Room Air Room Air Positive well nourished and well developed General Appearance ED: well developed and NAD HEENT Reports TM's clear and moist mucous membranes normocephalic and atraumatic Tympanic Membrane ED: Yes TM's clear Neck supple and no JVD Chest Wall inspection of chest normal Chest Narrative: No chest wall crepitus. Mild tenderness palpation over the left anterior chest wall and at sternal border Resp normal respiratory effort and clear to auscultation bilaterally Auscultation: Negative for rhonchi or wheezes Cardio regular rate and regular rhythm Peripheral Pulses: radial pulses present and dorsalis pedis pulses present GI normal to inspection, nondistended, normoactive bowel sounds, soft to palpation and non-tender Back/Spine no CVA tenderness Neuro oriented x3 Sensorium / Orientation: awake and alert Motor Exam: Negative for general weakness Psych mental status grossly normal Skin no rashes or lesions noted and no wounds Heart Score History: Slightly/Non-Suspicious ECG: Normal Age: >45 - <65 years Risk Factors: 1 or 2 Risk Factors Troponin: </= Normal Limit Score: 2 MDM MDM MDM Narrative Medical decision making narrative: Patient is evaluated for chest pain. Due to be very much muscle skeletal/chest wall pain. Worse with coughing and sneezing. Will obtain workup to rule out more serious process such as ACS, pericarditis/myocarditis and PE. He had outpatient x-rays which reportedly were normal. I do not have access to these results. Given that this pain is been going on since last night I do not think delta high sensitive troponin is needed. CBC, BMP, magnesium and troponin are normal. EKG does not show any ischemic changes. D-dimer is elevated so CTA is obtained. CTA shows coronary artery calcifications and mild thickening of the anterior pericardium but no PE. No comment on any rib fractures either. Patient informed of incidental finding of thickening of the anterior pericardium. This is not associated with his symptoms today. He does not have electrical alternans on his EKG, decreased amplitude or EKG changes. Patient is given a dose of aspirin emergency room and fluids with some improvement. Counseled on CT findings. At this time will be discharged home. Exact cause of symptoms is not clear but suspect is more muscle skeletal. Differential includes chest wall strain or costochondritis. Lab Data Attestation: I reviewed the patient's lab results. Labs: Laboratory Results - last 24 hr 11/07/24 11/07/24 10:05 11:10 WBC 7.9 RBC 4.96 Hgb 15.5 Hct 46.9 MCV 94.6 H MCH 31.3 MCHC 33.0 RDW Std Deviation 45.0 H RDW Coeff of Carmella 13.0 Plt Count 161 MPV 11.8 Immature Gran % (Auto) 0.500 Neut % (Auto) 85.1 H Lymph % (Auto) 6.2 L Spencer % (Auto) 7.3 Eos % (Auto) 0.6 Baso % (Auto) 0.3 Absolute Neuts (auto) 6.7 Absolute Lymphs (auto) 0.49 L Nucleated RBC % 0 D-Dimer Quant (PE/DVT) 0.69 H* Sodium 136 Potassium 4.4 Chloride 105 Carbon Dioxide 24.0 Anion Gap 7 BUN 20 H Creatinine 1.01 Estim Creat Clear Calc 122.15 Est GFR (MDRD) Af Amer 99 Est GFR (MDRD) Non-Af 82 BUN/Creatinine Ratio 19.8 Glucose 126 H Calcium 9.1 Magnesium 2.3 Troponin I High Sens 6 Radiography Diagnostic Testing: Clinical Impression(s) from Imaging Studies Chest CTA 11/07/24 11:50 IMPRESSION: No evidence of pulmonary embolism. Coronary artery calcification. Mild thickening of the anterior pericardium. One or more dose reduction techniques were used (e.g., Automated exposure control, adjustment of the mA and/or kV according to patient size, use of iterative reconstruction technique). Reading Location: [place] [id number] Rhythm Strip Rhythm Strip: Sinus Rhythm Rate: 61 Ectopy: None EKG Initial EKG: Attestation: I personally reviewed and interpreted this EKG as follows: Interpretation: Sinus Rhythm Comments: Normal sinus rhythm at a rate of 61 bpm Normal axis Normal intervals Normal ST segments Discharge Plan Triage Chief Complaint: Chest Other ED Provider: Dodie Simon Dx/Rx/DC Orders Clinical Impression: Anterior chest wall pain Instructions: ED Chest Pain, Noncardiac Prescriptions: No Action potassium citrate [Urocit-K 15] 15 MEQ tablet extended release 0 meq PO BID voesgdrlpw-fpnwfjofvwfkm-ehmf 1 TABLET tablet 2 tab PO Q4H PRN PRN (Reason: Headache) Qty: 20 0RF ondansetron 4 MG tablet 4 mg PO Q8H PRN PRN (Reason: Nausea) Qty: 10 0RF hydrocodone-acetaminophen [hydrocodone-acetaminophen] 1 TABLET tablet 1 tab PO Q4H PRN PRN (Reason: Pain) 2 Days Qty: 10 0RF tramadol 50 mg tablet 50 mg PO Q6H PRN (Reason: pain) 2 Days Qty: 10 0RF orphenadrine citrate 100 mg tablet extended release 100 mg PO Q12H PRN (Reason: muscle spasm) Qty: 10 0RF ondansetron 8 mg tablet,disintegrating 8 mg PO Q8H PRN (Reason: nausea and vomiting) Qty: 7 0RF Primary Care Provider: Arjun Maya Referrals: Arjun Maya MD [Primary Care Provider] - Activity Restrictions/Additional Instructions: Your workup today did not show any findings of acute heart distress, pneumonia or blood clot. Your CT did show some mild thickening of the anterior pericardium in your heart. This is nonspecific finding. Please follow-up with your primary care doctor for this as you might require an outpatient ultrasound of the heart for further evaluation of this. I do not think is related to your pain today. You can take [id number] ibuprofen for the pain or try Lidoderm patches for the pain. I recommend the 4% extra strength patches Print Language: Georgian Disposition Disposition: Home, Self Care
[2024-11-07] MEDS: Aspirin 81 MG TAB.CHEW 324 MG PO (10:57)
[2024-11-07] MEDS: 0.9% Normal Saline (1000mL) 1,000 ML 999 ML IV (11:03)
[2024-11-07 11:15] LABS: Anion Gap 7 (5-15); BUN 20 mg/dL (7-18); BUN/Creat Ratio 19.8 RATIO (10-20); Calcium,Total 9.1 mg/dL (8.5-10.1); Chloride 105 mmol/L (98-107); Creatinine, Serum 1.01 mg/dL (0.70-1.30); EST Glomerular Filtration Rate 82 mL/min (>60); Est Glom Filt Rate - Afr Amer 99 mL/min (>60); Estimated Creatinine Clearance 122.15 ml/min; Glucose 126 mg/dL (74-106); Magnesium 2.3 mg/dL (1.6-2.6); Potassium 4.4 mmol/L (3.5-5.1); Sodium Level 136 mmol/L (136-145); Troponin-I HS 6 pg/mL (3.0-78.0)
[2024-11-07 11:47] LABS: D-Dimer Quantitative (DVT/PE) 0.69 FEU/ug/m (0.27-0.49)
--- NOTE | 2024-11-07 11:50 | CT_ITS ---
PROCEDURE: CTA CHEST W/WO CONTRAST REASON FOR EXAM: Chest pain and rib pain following coughing. TECHNIQUE: CTA imaging of the chest with intravenous contrast. 3D reconstructions. CONTRAST: 95 cc of Isovue 370. COMPARISON: None. FINDINGS: Hardware: None. Lymph nodes: No mediastinal hilar or axillary lymphadenopathy. Heart: Mild thickening of the anterior pericardium. Coronary artery calcification. Left-sided pacemaker device is seen. RV/LV Diameter Ratio: N/A Thoracic Aorta: No thoracic aortic aneurysm or dissection. Pulmonary Vessels: No evidence of acute pulmonary emboli through the major subsegmental branches. Most Proximal Level of Embolus (if embolus present): N/A Lungs and Airways: The lungs are normally expanded and clear. Pleura: No pleural effusion. No pneumothorax. Upper Abdomen: Visualized portions of the upper abdominal viscera are unremarkable. Bones: Degenerative changes of the thoracic spine. CT/CTA Chest W/WO Contrast IMPRESSION: No evidence of pulmonary embolism. Coronary artery calcification. Mild thickening of the anterior pericardium. One or more dose reduction techniques were used (e.g., Automated exposure contr ol, adjustment of the mA and/or kV according to patient size, use of iterative reconstruction technique). Reading Location: [place] [id number]
[2024-11-07] MEDS: Lidocaine 5% Patch 1 PATCH TOPICAL (14:17)
== END 2024-11-07 14:24 | disposition home or self-care (01) ==
PROVIDERS: Emergency Provider Emergency Medicine; PCP Family Medicine; Visit Provider Emergency Medicine
DX: R07.89 Other chest pain (principal); R05.9 Cough, unspecified; I31.9 Disease of pericardium, unspecified; F17.210 Nicotine dependence, cigarettes, uncomplicated
CPT/HCPCS: 71275; 80048; 83735; 84484; 85025; 85379; 87631; 93005; 96360; 96361; 99285; Q9967; A4216

== ENCOUNTER → 2024-11-12 | Outpatient (CLI) | payer OTHER, SELFPAY ==
[2024-11-12 10:43] LABS: Cholesterol 194 mg/dL (200); High Density Lipoprotein 39 mg/dL; Triglycerides 115 mg/dL; Very Low Density Lipoprotein 23 mg/dL (5-40)
== END | disposition home or self-care (01) ==
LOC: MFPLAB 08:30
PROVIDERS: PCP Family Medicine; Referring Provider Family Medicine; Visit Provider Family Medicine
DX: I25.10 Atherosclerotic heart disease of native coronary artery without angina pectoris (principal)
CPT/HCPCS: 36415; 80061

== ENCOUNTER → 2025-02-25 | Outpatient (CLI) | payer OTHER, SELFPAY ==
[2025-02-25 13:01] LABS: ALB/GLOB Ratio 1.8 RATIO (0.9-2.4); AST(SGOT) 25 U/L (<=37); Alanine Aminotransfer ALT/SGPT 37 U/L (<=46); Albumin, Serum 4.3 g/dL (3.5-5.0); Alkaline Phosphatase 92 U/L (40-129); Anion Gap 10 (5-15); BUN 19 mg/dL (4-19); Calcium,Total 9.3 mg/dL (7.6-11.0); Carbon Dioxide 21.9 mmol/L (21.0-32.0); Chloride 106 mmol/L (98-108); Cholesterol 127 mg/dL (<=200); Creatinine, Serum 0.72 mg/dL (0.70-1.20); EST Glomerular Filtration Rate 109 (>60); Globulin 2.3 g/dL (2.2-4.2); Glucose 117 mg/dL (70-99); High Density Lipoprotein 38 mg/dL; Low Density Lipoprotein Calc. 65 mg/dL; Potassium 4.6 mmol/L (3.3-5.1); Protein, Total 6.6 g/dL (5.9-8.4); Sodium Level 138 mmol/L (133-145); Triglycerides 118 mg/dL; Very Low Density Lipoprotein 24 mg/dL (5-40); cholesterol:hdl ratio screen 3.34
--- OUTSIDE RECORDS SUMMARY | 2025-02-25 21:49 | XMS RPT_ITS | CCD ---
Author Organization [facility] Team Providers Care Landscape Crew Member Name Role Phone Dr. Arjun Duke Primary Care Provider Dr. Will Regalado Attending Provider Arjun Duke MD Primary Care Provider ARJUN DUKE Primary Care Unavailable RAMBO SOLORZANO Referring Unavailable ARJUN DUKE Primary Care Unavailable Dr. Arjun Duke MD Primary Care Provider Dr. Arjun Duke MD Attending Provider Dr. rAjun Duke MD Referring Provider Dr. Dodie Simon DO Attending Provider Dr. Dodie Simon DO Emergency Provider Dodie Simon Attending Unavailable Arjun Duke Primary Care Unavailable Arjun Duke Primary Care Unavailable Isaias Lyons Attending Unavailable Francesco, Arjun Referring Unavailable Duke, Arjun Attending Unavailable Francesco, Arjun Primary Care Unavailable Francesco, Arjun Attending Unavailable Francesco, Arjun Primary Care Unavailable Francesco, Arjun Referring Unavailable Francesco, Arjun Referring Unavailable Francesco, Arjun Attending Unavailable Arjun Duke Primary Care Unavailable Medications Current Medications Medication Drug Class(es) Dates Sig (Normalized) Sig (Original) acetaminophen 325 mg / butalbital 50 mg / caffeine 40 mg oral tablet (4 sources) Barbiturate, Central Nervous System Stimulant, Methylxanthine Start: 08-11-2016 Butalbital-Aceta minophen-Caff 1 TABLET tablet Active 2 {tbl} PO EVERY 4 HOURS NEEDED as needed for Headache August 11, 2016 12:00am Start: 08-11-2016 take 2 tablets by mo uth every four hours as needed Rhpufekltb-Cagrdjogbhypb-Gqzu Active 2 TABLET PO EVERY 4 HOURS NEEDED August 11, 2016 1:00am acetaminophen 325 mg / HYDROcodone bitartrate 5 mg oral tablet (4 sources) Opioid Agonist Start: 04-25-2021 take 1 tablet by mouth every four hours as needed for pain Hydrocodone-Acetaminophen 1 TABLET tablet Active 1 {tbl} PO EVERY 4 HOURS NEEDED as needed for Pain 10 April 25, 2021 Start: 04-25-2021 take 1 tablet by roxy th every four hours as needed Hydrocodone-Acetaminophen Active 1 TABLE T PO EVERY 4 HOURS NEEDED 06 20April 25, 2021 ondansetron 8 mg disintegrating oral tablet (5 sources) Serotonin-3 Receptor Antagonist Start: 04-10-2024 take 1 tablet by mouth every eight hours as needed for nausea and vomiting Ondansetron 8 mg tablet,disintegrating Active 8 mg PO Q8H as needed for nausea and vomiting April 09, 2024 11:00pm Start: 08-11-2016 take 1 tablet by roxy th every eight hours as needed for nausea Ondansetron 4 MG tablet Active 4 mg PO EVERY 8 HOURS NEEDED as needed for Nausea August 11, 2016 12:00am 12 hr orphenadrine citrate 100 mg extended release oral tablet (4 sources) Muscle Relaxant Start: 05-25-2022 take 1 tablet by mouth every twelve hours as needed for muscle spasms Orphenadrine Citrate 100 mg tablet extended release Active 100 mg PO Q12H as needed for muscle spasm May 25, 2022 8:00am potassium citrate 15 meq extended release oral tablet (4 sources) Start: 08-11-2016 Potassium Citrate (Urocit-K) 15 MEQ tablet extended release Active 0 meq PO TWICE A DAY August 11, 2016 12:00am QUEtiapine 100 mg oral tablet (2 sources) Atypical Antipsychotic Start: 10-15-2024 take 1 tablet by mouth once daily at bedtime QUEtiapine (SEROQUEL) 100 mg tablet Take 100 mg by mouth daily at bedtime. 10/15/2024 Active traMADol hydrochloride 50 mg oral tablet (4 sources) Opioid Agonist Start: 05-25-2022 take 1 tablet by mouth every six hours as needed for pain Tramadol 50 mg tablet Active 50 mg PO EVERY 6 HOURS as needed for pain 10 May 25, 2022 8:00am Completed/Discontinued Medications Medication Drug Class(es) Dates Sig (Normalized) Sig (Original) [id number] 200 actuat albuterol 0.09 mg/actuat metered dose inhaler (1 source) beta2-Adrenergic Agonist Start: 12-07-2021 End: 11-07-2024 take 2 puff(s) by inhalation every six hours as needed albuterol HFA (PROAIR HFA) 90 mcg/actuation inhaler Indications: Bronchitis Inhale 2 Puffs as instructed every 6 hours as needed. 1 Inhaler 12/07/2021 11/07/2024 Discontinued benzonatate 100 mg oral capsule
== END | disposition home or self-care (01) ==
LOC: MFPLAB 09:52
PROVIDERS: PCP Family Medicine; Referring Provider Family Medicine; Visit Provider Family Medicine
DX: E78.5 Hyperlipidemia, unspecified (principal)
CPT/HCPCS: 36415; 80053; 80061

== ENCOUNTER → 2025-06-24 | Outpatient (CLI) | payer OTHER, SELFPAY ==
[2025-06-24 12:59] LABS: AST(SGOT) 24 U/L (<=37); Alanine Aminotransfer ALT/SGPT 33 U/L (<=46); Albumin, Serum 4.2 g/dL (3.5-5.0); Alkaline Phosphatase 77 U/L (40-129); Anion Gap 12 (5-15); BUN 14 mg/dL (4-19); BUN/Creat Ratio 22.8 RATIO (10-20); Calcium,Total 9.2 mg/dL (7.6-11.0); Carbon Dioxide 22.9 mmol/L (21.0-32.0); Chloride 104 mmol/L (98-108); Cholesterol 134 mg/dL (<=200); Globulin 2.3 g/dL (2.2-4.2); Glucose 113 mg/dL (70-99); Low Density Lipoprotein Calc. 57 mg/dL; Potassium 4.1 mmol/L (3.3-5.1); Triglycerides 175 mg/dL; Very Low Density Lipoprotein 35 mg/dL (5-40); cholesterol:hdl ratio screen 3.16
== END | disposition home or self-care (01) ==
LOC: MFPLAB 09:44
PROVIDERS: PCP Family Medicine; Visit Provider Family Medicine
DX: E78.5 Hyperlipidemia, unspecified (principal)
CPT/HCPCS: 36415; 80053; 80061